=== PATIENT | male | born 1935 | race Caucasian/White ===

== ENCOUNTER 2022-02-14 22:14 | Observation (INO) ==
[2022-02-15] MEDS ORDERED: ACETAMINOPHEN 1,000 MG/100 ML VIAL IV STA (00:30)
[2022-02-15] MEDS ORDERED: SODIUM CHLORIDE 0.9% 1000ML 1,000 ML IV SCH (00:30)
[2022-02-15 01:11] LABS: Basophils # (auto) 0.06 K/uL (0-0.2); Basophils % (auto) 0.8 %; Eosinophils # (auto) 0.33 K/uL (0-0.50); Eosinophils % (auto) 4.2 %; Hematocrit (blood only) 36.8 % (40.1-51.0); Hemoglobin 12.8 g/dl (14.0-18.0); Immature Granulocytes # (auto) 0.02 K/uL (0.00-0.02); Immature Granulocytes % (auto) 0.3 %; Lymphocytes # (auto) 2.04 K/uL (1.2-3.4); Lymphocytes % (auto) 26.1 %; Mean Corpuscular Hemoglobin 33.9 pg (25.0-34.0); Mean Corpuscular Hgb Conc 34.8 g/dL (32.0-36.0); Mean Corpuscular Volume 97.4 fL (80.0-100.0); Mean Platelet Volume 12.6 fL (9.4-12.4); Monocytes % (auto) 16.6 %; Neutrophils # (auto) 4.06 K/uL (1.4-6.5); Platelet Count 158 K/uL (130-400); RDW Coefficient of Variation 14.8 % (11.5-14.5); RDW Standard Deviation 53.2 fL (36.4-46.3); Red Blood Count 3.78 M/uL (4.63-6.08); White Blood Count 7.81 K/ul (4.8-10.8)
[2022-02-15 01:25] LABS: Albumin Globulin Ratio 1.1 (0.9-2); Albumin Level 3.6 gm/dl (3.4-5.0); BUN Creatinine Ratio 25.6 (10-20); Bilirubin,Total 0.4 mg/dl (0.2-1.0); Calcium 9.1 mg/dl (8.5-10.1); Creatinine Clr Calc Pharmacy 53.4 ml/min; Est GFR (African American) 95.4 ml/min; Est GFR (Non-African American) 82.3 ml/min; Globulin 3.2 gm/dl (2.5-4.0); Magnesium 1.8 mg/dl (1.7-2.4); Total Protein 6.8 gm/dl (6.0-8.3)
[2022-02-15 01:42] LABS: Appearance Urine Clear (Clear); Bilirubin Urine Negative (Negative); Blood Urine Negative (Negative); Color Urine Yellow; Glucose Urine UA Negative (Negative); Ketones Urine Negative (Negative); Leukocyte Esterase Urine Negative (Negative); Nitrite Urine Negative (Negative); Protein Urine Negative (Negative); Specific Gravity Urine 1.016 (1.000-1.030); Urobilinogen Urine Negative (Negative)
--- NOTE | 2022-02-15 03:28 | History & Physical Report ---
Date of Service February 15, 2022 Assessment & Plan (1) Hip pain, left: Plan: This is an 86-year-old male with a history of dyslipidemia, coronary artery disease s/p CABGx4 in 1987 and later stenting, hypertension, and prostatic enlargement who presented to [facility] for evaluation of fall onto his left side approx. 4 days ago, subsequently told he had a "hip fracture" on this side at urgent care -- unfortunately files are unavailable from them at this time. CT of the hip STAT-Rad did not reveal acute fractures, though it did point out spots concerning for lytic lesions. LEFT Hip Pain - Patient endured fall in his yard approx. 4 days ago with significant L-lateral hip pain and difficulty bearing weight since. Told he was had a "hip fracture" at urgent care after CT, though files are not available at this time - Exam demonstrating mild-moderate pain over LEFT greater trochanter region with associated contusion ; patient also reports it hurts significantly with weightbaring - CT STAT-Rad hip: No mention of fx, "multiple small rounded blastic bone lesions, suspect metastases, in particular considering the marked enlargement of the prostate gland. Severe atherosclerosis. Colonic diverticulosis." - XRs: Did not appreciate any obvious fractures on read, though appreciate final radiology interpretation - DDX: Fracture, soft tissue injury (e.g., hematoma), GT bursitis - Check MRI - patient does have h/o war injuries and possible shrapnel, spoke with endoscopy tech, will do thorough review and if unclear hold on scanning - Activity will be restricted to bedrest at this time ; non-weightbearing on LEFT - Pain: Tylenol 1000mg q8h LAUREN, Toradol 15mg q6h for breakthrough > Dilaudid for severe - Await final radiology reads and MRI in AM -- if ongoing concerns for fx, anticipate orthopedics consult --> NPO now - PT, OT are ordered (2) Lytic lesion of bone on x-ray: Plan: Suspected Lytic Lesions - Appreciated on CT scan by STAT-RAD in context of significant prostatic enlargement -- However, patient/ tell me this was NOT noted on any other XRs/CTs they had within the last few days at ? No files available -- ALP normal - Primed patient and his with this information and possible relationship to prostate. Will await over-read in AM and MRI. (3) Prostatic disease: Plan: Prostatic Enlargement - History noted, also appreciated on CT of the hip obtained on admission - Patient reporting significant issues with urination and straining -- would likely benefit from urological consultation - Continue Flomax - If above lesions are c/w metastatic disease, may wish to consult urology while here for biopsy (4) CAD (coronary artery disease): Plan: HTN / CAD / HLD - S/P CABG x 4 in 1987 and "a couple stents" approx. 8 years ago at [facility] - Continue home medications - isosorbide, amlodipine, metoprolol, statin - Severe atherosclerotic disease appreciated on CT scan ; may wish to increase statin to high-potency once acute issues are settled - No h/o CHF per patient and his Plan Code: Full Diet: NPO for now PPX: SCDs in case of possible procedure Dispo: [place] History of Present Illness Primary Care Provider: Martina Desai This is an 86-year-old male with a history of dyslipidemia, coronary artery disease s/p CABGx4 in 1987 and later stenting, hypertension, and prostatic enlargement who presented to [facility] for evaluation of fall and pelvic pain. Patient says that approximately 4 to 5 days ago, he was outside at night and he tripped and fell on his left side but also hit his head. No LOC. He immediately felt pain within his left side, but continued to ambulate. Because of increasing pain in his lateral left hip, extending down his leg, he did go to the [place] urgent care. They initially did a CT and an x-ray, which they were told was negative for any fracture. Head CT was also negative. He was given a shot of Toradol with some improvement. Because the pain did not improve, he did return to urgent care, where he was then told he did have a fracturethey cannot exactly remember where. They were then told to come to the emergency room for further evaluation. He denies issues like this before. He denies any numbness or tingling on that leg. He denies any back pain. He does endorse issues with voiding. He does say that he has to strain to void frequently. He is a [place] and endorses prior war wounds with shrapnel. On arrival, patient was found to be hemodynamically stable with normal vital signs. Patient CBC demonstrates normocytic anemia 12.8, relative monocytosis, chemistries with BUN 20/creatinine 0.78, normal ALP, normal urine study. CT of the hip was obtained which demonstrated "multiple small rounded blastic bone lesions, suspect metastases, in particular considering the marked enlargement of the prostate gland. Severe atherosclerosis. Colonic diverticulosis." Patient was given Tylenol and IV fluids. Allergies Allergy/AdvReac Type Severity Reaction Status Date / Time simvastatin [From Zocor] Allergy Unknown Unknown Verified 02/15/22 01:10 Home Medications Medication Instructions Recorded Confirmed Type albuterol sulfate 90 mcg/actuation 2 puff inhalation Q6H PRN 02/15/22 02/15/22 History aerosol inhaler Shortness Of Breath amlodipine 2.5 mg tablet 2.5 mg PO DAILY 02/15/22 02/15/22 History guaifenesin 200 mg tablet 200 mg PO BID 02/15/22 02/15/22 History isosorbide mononitrate 60 mg 30 mg PO BID 02/15/22 02/15/22 History tablet,extended release 24 hr metoprolol tartrate 25 mg tablet 12.5 mg PO BID 02/15/22 02/15/22 History omeprazole 20 mg tablet,delayed 20 mg PO DAILY 02/15/22 02/15/22 History release pravastatin 40 mg tablet 40 mg PO HS 02/15/22 02/15/22 History tamsulosin 0.4 mg capsule 0.4 mg PO HS 02/15/22 02/15/22 History tramadol 50 mg tablet 50 mg PO Q4H PRN hip pain #15 tabs 02/15/22 Rx Past Med/Surg History Medical History (Updated 02/15/22 @ 17:38 by Peg Chase PA-C) CAD (coronary artery disease) Dyslipidemia FH: CABG (coronary artery bypass surgery) Hypertension Prostate enlargement Surgical History (Updated 02/15/22 @ 00:37 by Cathy Morrison MD) S/P coronary artery stent placement Social History Smoking Status: Former smoker Second Hand Exposure: Yes; Hx Alcohol Use: No Hx Substance Use: No Preferred Language: Barbadian Communication Ability: Effective [employer] Portal Developer Required: No Beliefs That Will Affect Care: None marital status: Current Living Situation: Spouse How many Children do You have: 1 Feels Safe at Home: Yes Assistive Devices: None Review of Systems Review of Systems: as per HPI Physical Exam Physical Exam: General: 86-year old male who is alert, oriented, and appears in no acute distress. HEENT: NCAT. - Eyes - Sclera are white, anicteric, and without injection. - Mouth - MMM - Neck - supple, no appreciable JVD Cardiac: Normal rate and regular rhythm; S1 and S2 present with no murmurs, rubs, or gallops. Pulmonary: Good respiratory effort with symmetric expansion of the chest. No use of accessory muscles. Lungs demonstrating rhonchi in the lower lung azul. Abdominal: Normoactive bowel sounds. Abdomen was soft, nondistended. There is a palpable suprapubic firm mass likely consistent with full bladder. MSK: - Hips: Palpation of the hips reveals moderate pain over the left greater trochanter. There is contusion in the viscinity of the L greater trochanter. He can actively flex this side; strength not assessed due to unclear degree of injury. Knee strength was 5/5 bilaterally. Sensation to light-touch was intact through both legs. - Back: Direct observation of the back reveals no abnormalities. There was no point tenderness upon vertebral palpation. There was no paraspinal firmness and/or tenderness appreciated. Extremities: Upper and lower extremities are warm and well perfused. No peripheral edema in the lower extremities bilaterally Psych: Well-developed, well-nourished, appropriately dressed for occasion. Behavior is cooperative and appropriate. Affect is WNL. Insight is appropriate. Results & Data Results & Data ([facility]) Vital Signs (Past 12 Hours) Vital Signs Temp Pulse Pulse Resp BP BP Pulse Ox 02/15/22 02:30 63 20 129/75 97 02/15/22 00:47 97 02/15/22 00:37 59 L 20 141/57 H 98 02/14/22 22:17 37 C 62 16 136/67 96 O2 Del Method 02/15/22 02:30 Room Air 02/15/22 00:47 Room Air 02/15/22 00:37 Room Air 02/14/22 22:17 Room Air Supervising Physician Co-Signing Physician Notes Attending addendum: I have physically seen this patient, have supervised the medical residents activities, and agree with the H&P unless as otherwise noted. Assessment and Plan: Intractable left hip pain/ambulatory dysfunction- X-ray and CT negative for fracture Consult orthopedic surgery for their assessment MRI questionably able to be performed, due to history of war injuries and possible shrapnel Tylenol 1000 mg IV every 8 hours as needed mild pain or temperature Toradol 15 mg IV every 6 hours p.o. breakthrough pain or moderate pain Dilaudid 0.25 mg IV every 3 hours as needed severe pain Blastic lesions noted on x-ray/prostatomegaly- Unknown to patient and Further work-up by daytime team CAD/hypertension/hyperlipidemia/status post CABG x4 in 1987/Stented coronary arteries- Continue routine medications: Isosorbide mononitrate, amlodipine, metoprolol and pravastatin Remaining orders and notations as noted Resident Activity Tracking Resident Involvement: Resident Care Provided Care Provided: Adult [facility]
[2022-02-15] MEDS ORDERED: ACETAMINOPHEN 325 MG TAB PO PRN (03:41)
[2022-02-15] MEDS ORDERED: ALBUTEROL HFA 8 GM INHALER INH PRN (05:21)
--- NOTE | 2022-02-15 05:53 | Emergency Department Note ---
Impression & Plan Fracture of left iliac wing, Right distal ureteral calculus, Prostate enlargement ED Provider Note CHIEF COMPLAINT: L hip pain HISTORY OF PRESENT ILLNESS: This 86 yo male patient presents to the emergency department with c/o L hip pain after a fall 4 days ago. Patient states he tripped over his dog, did hit his head and now complains of left hip pain. His took him to urgent care the morning after the fall but they recommended transfer to [place] for definitive care. Patient re-presented to the urgent care at the CT and the patient had repeat x-rays and a CAT scan. He was told that this represented a fracture and that he would need to be transferred to the [facility] of the CT. Patient and declined, stating they would like to come to our facility for evaluation. REVIEW OF SYSTEMS: A review of systems was performed with positives and pertinent negatives listed in the history of present illness. 10 systems were reviewed and are otherwise negative. ALLERGIES: see below MEDICATIONS: see below PMH: see below SOCIAL HISTORY: see below DDx: Fracture, subluxation, dislocation, contusion, ligamentous injury, neurovascular, compartment syndrome, rhabdomyolysis, as well as other pathologies. PHYSICAL EXAM: Vital signs reviewed. General: Well-appearing 86 yo male, in no significant distress. HEENT: No scleral icterus, PERRLA, neck supple. Atraumatic. Cardiovascular: Regular rate and rhythm, no extra sounds. Pulmonary: Clear to auscultation bilaterally, normal work of breathing. Abdomen: Soft, nontender, nondistended, positive bowel sounds. Musculoskeletal: Atraumatic, no peripheral edema. Nontender to palpation lumbar spine. Over the left anterior pelvis. No obvious deformity over the L hip, full range of motion. Neurologic: Patient awake alert and oriented x 3 Skin: Warm, dry, no rash EMERGENCY DEPARTMENT COURSE/MDM: This patient was evaluated and appeared to be in no significant distress. Patient was uncomfortable to direct pressure over the pelvis and hip. He did have some discomfort with walking. Patient was medicated with IV Tylenol. X-rays were performed and no acute fractures were visualized to my interpretation. CT imaging was performed and reveals some sclerotic lesions throughout the pelvis and a fracture of the iliac bone. Patient's case was discussed with the hospitalist service who will evaluate pa tient for admission and further management. Patient and are aware of the plan and agreed. MONITORING: An order for cardiac monitoring was placed and the patient is noted to be in a sinus bradycardia at 63 beats per minute. RADIOLOGY: See below EKG: Sinus bradycardia premature atrial complex at 58 bpm. QTC is 418. Normal ST segments, otherwise normal EKG. No previous for comparison. 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 Beliefs That Will Affect Care: None marital status: Current Living Situation: Spouse How many Children do You have: 1 Feels Safe at Home: Yes Assistive Devices: None Allergies Allergies Allergy/AdvReac Type Severity Reaction Status Date / Time simvastatin [From Zocor] Allergy Unknown Unknown Verified 02/15/22 01:10 Home Meds Home Medications Medication Instructions Recorded Confirmed albuterol sulfate 90 mcg/actuation 2 puff inhalation Q6H PRN 02/15/22 02/15/22 aerosol inhaler Shortness Of Breath amlodipine 2.5 mg tablet 2.5 mg PO DAILY 02/15/22 02/15/22 guaifenesin 200 mg tablet 200 mg PO BID 02/15/22 02/15/22 isosorbide mononitrate 60 mg 30 mg PO BID 02/15/22 02/15/22 tablet,extended release 24 hr metoprolol tartrate 25 mg tablet 12.5 mg PO BID 02/15/22 02/15/22 omeprazole 20 mg tablet,delayed 20 mg PO DAILY 02/15/22 02/15/22 release pravastatin 40 mg tablet 40 mg PO HS 02/15/22 02/15/22 tamsulosin 0.4 mg capsule 0.4 mg PO HS 02/15/22 02/15/22 Previous Rx's Medication Instructions Recorded tramadol 50 mg tablet 50 mg PO Q4H PRN hip pain #15 tabs 02/15/22 Results & Data (ED) Vital Signs Vital Signs - 24 hr 02/14/22 22:17 02/15/22 00:37 02/15/22 00:47 Temperature 37 C Temperature Source Temporal Artery Scan Pulse Rate 62 Pulse Rate [Finger] 59 L Respiratory Rate 16 20 Respiratory Effort / Characteristics Non-Labored Spontaneous Respiratory Depth Normal Blood Pressure 136/67 Blood Pressure [Right Arm] 141/57 H Blood Pressure Mean 90 Blood Pressure Mean [Right Arm] 85 Pulse Oximetry 96 98 97 Oxygen Delivery Method Room Air Room Air Room Air Sepsis Recent Fever Within 48 Hours No Sepsis New/Unexplained Change in Mental Status N/A Sepsis Action Taken by Nursing No Action Required 02/15/22 02:30 Temperature Temperature Source Pulse Rate Pulse Rate [Finger] 63 Respiratory Rate 20 Respiratory Effort / Characteristics Respiratory Depth Blood Pressure Blood Pressure [Right Arm] 129/75 Blood Pressure Mean Blood Pressure Mean [Right Arm] 93 Pulse Oximetry 97 Oxygen Delivery Method Room Air Sepsis Recent Fever Within 48 Hours Sepsis New/Unexplained Change in Mental Status Sepsis Action Taken by [facility] Medications Current Medication List: was personally reviewed by me Laboratory Data Attestation: I reviewed the patient's lab results. Result diagrams: 02/15/22 00:47 02/15/22 00:47 Lab Results 02/15/22 02/15/22 02/15/22 Range/Units 00:47 00:47 00:47 WBC 7.81 (4.8-10.8) K/ul RBC 3.78 L (4.63-6.08) M/uL Hgb 12.8 L (14.0-18.0) g/dl Hct 36.8 L (40.1-51.0) % MCV 97.4 (80.0-100.0) fL MCH 33.9 (25.0-34.0) pg MCHC 34.8 (32.0-36.0) g/dL RDW Std Deviation 53.2 H (36.4-46.3) fL RDW Coeff of Livan 14.8 H (11.5-14.5) % Plt Count 158 (130-400) K/uL MPV 12.6 H (9.4-12.4) fL Immature Gran % (Auto) 0.3 % Neut % (Auto) 52.0 % Lymph % (Auto) 26.1 % Carter % (Auto) 16.6 % Eos % (Auto) 4.2 % Baso % (Auto) 0.8 % Neut # (Auto) 4.06 (1.4-6.5) K/uL Lymph # (Auto) 2.04 (1.2-3.4) K/uL Carter # (Auto) 1.30 H (0.24-0.82) K/uL Eos # (Auto) 0.33 (0-0.50) K/uL Baso # (Auto) 0.06 (0-0.2) K/uL Immature Gran # (Auto) 0.02 (0.00-0.02) K/uL Sodium 138 (136-145) mmol/L Potassium 5.0 (3.5-5.1) mmol/L Chloride 103 (98-107) mmol/L Carbon Dioxide 31 (21-32) mmol/L Anion Gap 4 (3-11) BUN 20 (6-23) mg/dl Creatinine 0.78 (0.6-1.4) mg/dl Est Cr Clr Drug Dosing 53.4 ml/min Est GFR ( Amer) 95.4 ml/min Est GFR (Non-Af Amer) 82.3 ml/min BUN/Creatinine Ratio 25.6 H (10-20) Glucose 101 H (70-99(Fasting)) mg/dl Calcium 9.1 (8.5-10.1) mg/dl Magnesium 1.8 (1.7-2.4) mg/dl Total Bilirubin 0.4 (0.2-1.0) mg/dl AST 20 (13-39) U/L ALT 9 (7-52) U/L Alkaline Phosphatase 74 (34-104) U/L Total Protein 6.8 (6.0-8.3) gm/dl Albumin 3.6 (3.4-5.0) gm/dl Globulin 3.2 (2.5-4.0) gm/dl Albumin/Globulin Ratio 1.1 (0.9-2) TSH 3.043 (0.300-4.500) uIu/ml Urine Color Urine Appearance (Clear) Urine pH (4.5-7.5) Ur Specific [place] (1.000-1.030) Urine Protein (Negative) Urine Glucose (UA) (Negative) Urine Ketones (Negative) Urine Blood (Negative) Urine Nitrite (Negative) Urine Bilirubin (Negative) Urine Urobilinogen (Negative) Ur Leukocyte Esterase (Negative) SARS-CoV-2, RNA, NAAT (NEGATIVE) 02/15/22 02/15/22 Range/Units 01:31 03:32 WBC (4.8-10.8) K/ul RBC (4.63-6.08) M/uL Hgb (14.0-18.0) g/dl Hct (40.1-51.0) % MCV (80.0-100.0) fL MCH (25.0-34.0) pg MCHC (32.0-36.0) g/dL RDW Std Deviation (36.4-46.3) fL RDW Coeff of Livan (11.5-14.5) % Plt Count (130-400) K/uL MPV (9.4-12.4) fL Immature Gran % (Auto) % Neut % (Auto) % Lymph % (Auto) % Carter % (Auto) % Eos % (Auto) % Baso % (Auto) % Neut # (Auto) (1.4-6.5) K/uL Lymph # (Auto) (1.2-3.4) K/uL Carter # (Auto) (0.24-0.82) K/uL Eos # (Auto) (0-0.50) K/uL Baso # (Auto) (0-0.2) K/uL Immature Gran # (Auto) (0.00-0.02) K/uL Sodium (136-145) mmol/L Potassium (3.5-5.1) mmol/L Chloride (98-107) mmol/L Carbon Dioxide (21-32) mmol/L Anion Gap (3-11) BUN (6-23) mg/dl Creatinine (0.6-1.4) mg/dl Est Cr Clr Drug Dosing ml/min Est GFR ( Amer) ml/min Est GFR (Non-Af Amer) ml/min BUN/Creatinine Ratio (10-20) Glucose (70-99(Fasting)) mg/dl Calcium (8.5-10.1) mg/dl Magnesium (1.7-2.4) mg/dl Total Bilirubin (0.2-1.0) mg/dl AST (13-39) U/L ALT (7-52) U/L Alkaline Phosphatase (34-104) U/L Total Protein (6.0-8.3) gm/dl Albumin (3.4-5.0) gm/dl Globulin (2.5-4.0) gm/dl Albumin/Globulin Ratio (0.9-2) TSH (0.300-4.500) uIu/ml Urine Color Yellow Urine Appearance Clear (Clear) Urine pH 7.0 (4.5-7.5) Ur Specific [place] 1.016 (1.000-1.030) Urine Protein Negative (Negative) Urine Glucose (UA) Negative (Negative) Urine Ketones Negative (Negative) Urine Blood Negative (Negative) Urine Nitrite Negative (Negative) Urine Bilirubin Negative (Negative) Urine Urobilinogen Negative (Negative) Ur Leukocyte Esterase Negative (Negative) SARS-CoV-2, RNA, NAAT NEGATIVE (NEGATIVE) Administered Medications Discontinued Medications Acetaminophen (Acetaminophen 325 Mg Tab) 650 mg PO Q4H PRN PRN Reason: pain/fever Stop: 03/17/22 03:40 Last Admin: 02/15/22 06:43 Dose: 650 mg Documented By: MORIS Amlodipine Besylate (Amlodipine Besylate 5 Mg Tab) 2.5 mg PO DAILY [facility] Stop: 03/17/22 08:59 Last Admin: 02/15/22 08:22 Dose: 2.5 mg Documented By: ABEL Guaifenesin (Guaifenesin 200 Mg Tab) 200 mg PO BID [facility] Stop: 03/17/22 08:59 Last Admin: 02/15/22 08:21 Dose: 200 mg Documented By: ABEL Hydromorphone HCl (Hydromorphone Inj 0.5 Mg/0.5 Ml Syr) 0.25 mg IV Q6H PRN PRN Reason: Pain beyond Toradol or Severe Stop: 03/01/22 05:56 Last Admin: 02/15/22 09:06 Dose: 0.25 mg Documented By: ABEL Sodium Chloride (Nss 1000ml) 1,000 mls @ 125 mls/hr IV .Q8H [facility] Stop: 02/15/22 08:29 Last Infusion: 02/15/22 07:21 Dose: 0 mls/hr Documented By: Admin: 02/15/22 00:47 Dose: 125 mls/hr Documented By: BILL Acetaminophen (Ofirmev) 1,000 mg in 100 mls @ 400 mls/hr IV NOW STA Stop: 02/15/22 00:44 Last Infusion: 02/15/22 01:23 Dose: 0 mls/hr Documented By: Admin: 02/15/22 00:47 Dose: 400 mls/hr Documented By: BILL Acetaminophen 1,000 mg/ EMPTY (BAG) 100 mls @ 400 mls/hr IV Q8H [facility]UREN Stop: 03/17/22 05:59 Last Infusion: 02/15/22 13:29 Dose: 0 mls/hr Documented By: Admin: 02/15/22 13:13 Dose: 400 mls/hr Documented By: Admin: 02/15/22 07:11 Dose: Not Given Documented By: ABEL Isosorbide Mononitrate (Isosorbide Carter Extended Rel 30 Mg Tabcr) 30 mg PO BID [facility]EN Stop: 03/17/22 08:59 Last Admin: 02/15/22 08:22 Dose: 30 mg Documented By: ABEL Metoprolol Tartrate (Metoprolol Tartrate 25 Mg Tab) 12.5 mg PO BID [facility] Stop: 03/17/22 08:59 Last Admin: 02/15/22 08:22 Dose: 12.5 mg Documented By: ABEL Pantoprazole Sodium (Pantoprazole 40 Mg Tab) 40 mg PO DAILY [facility] Stop: 03/17/22 08:59 Last Admin: 02/15/22 08:22 Dose: 40 mg Documented By: ABEL Imaging Data Radiologist's Impression: Chest X-Ray 02/15/22 00:29 XR chest 1V portable CLINICAL HISTORY: weakness TECHNIQUE: Single frontal radiograph of the chest was obtained. Comparison: None available at the time of this dictation. FINDINGS: Median sternotomy wires are seen with fractured superior wire. Cardiomegaly is noted. The aortic arch is calcified. Prominence and cephalization of the vasculature is seen. No evidence of pleural effusion or pneumothorax. IMPRESSION: Cardiomegaly with mild pulmonary edema. ACT 112: Negative or not required by law. Electronically signed by: Syed Tinoco M.D. 02/15/2022 9:43 AM Hip/Pelvis X-Ray 02/15/22 00:30 XR hip LT 2V w pelvis CLINICAL HISTORY: Fracture TECHNIQUE: 2 views of the left hip and single frontal view of the pelvis were obtained. Comparison: Comparison is made to CT pelvis 02/15/2022 FINDINGS: There is a linear lucency in the left iliac bone compatible with a minimally displaced fracture. No fracture of the hip or other pelvic bones are seen. Degenerative changes are seen in the hip joint. Postsurgical changes of hernia mesh noted. IMPRESSION: Fracture of the left iliac bone. No fractures of the hip or remainder of the pelvis noted. ACT 112: Negative or not required by law. Electronically signed by: Syed Tinoco M.D. 02/15/2022 9:[address] 02/15/22 01:[address] DOSE: 278.39 mGy.cm HISTORY: L hip pain, ? fracture per outside report TECHNIQUE: Multiaxial CT images of the pelvis were performed and reformatted in the sagittal and coronal plane without the use of contrast. A dose lowering technique was utilized adhering to the principles of ALARA. COMPARISON: Left femur 02/15/2022. FINDINGS: Slightly angulated fracture within the anterior aspect of the left iliac wing best seen on image 349. This demonstrates mild lateral angulation. Soft tissue edema within the anterior aspect of the left hemipelvis with a small intramuscular hematoma within the adjacent left iliacus muscle. Prostate gland is markedly enlarged. Mild bladder wall thickening is likely due to chronic outlet obstruction. The bladder is mildly distended. There is a 1.1 cm stone within the distal right ureter near the ureterovesical junction best seen image 315 resulting in mild dilatation of the distal right ureter. Evidence for prior right inguinal hernia repair. Prominent bilateral iliac lymph nodes with the largest on the right on image 135 measuring 10 mm and the largest on the left within the left pelvic sidewall on image 395 measuring 13 mm. Multiple scattered subcentimeter sclerotic foci seen within the pelvic bones measuring up to 5 mm. No fracture or dislocation within the proximal right or left femur. IMPRESSION: 1. Slightly angulated oblique fracture within the anterior left iliac bone. 2. No fracture or dislocation within the right or left femur. 3. A 1.1 cm obstructing stone within the distal right ureter. 4. Markedly enlarged prostate gland with multiple mildly enlarged pelvic lymph nodes. Metastatic disease would be the diagnosis of exclusion. 5. Scattered subcentimeter sclerotic foci within the pelvic bones. These are nonspecific could represent bone islands or metastatic disease. 6. This report was called/faxed to the emergency department following dictation. ACT 112: Negative or not required by law. Electronically signed by: Gelacio Kaur M.D. 02/15/2022 8:04 AM Femur X-Ray 02/15/22 01:15 XR femur LT 2V routine CLINICAL HISTORY: trauma TECHNIQUE: 2 radiographic views of the left femur were obtained. Comparison: Comparison is made to left hip radiograph 02/15/2022 FINDINGS: There is no evidence for fracture, subluxation or dislocation. Degenerative changes are seen in the hip and knee joints. Surgical clips are seen in the posterior distal soft tissues. Vascular calcifications are seen. IMPRESSION: No evidence of acute bony injury. ACT 112: Negative or not required by law. Electronically signed by: Syed Tinoco M.D. 02/15/2022 9:43 AM Blood Pressure Blood Pressure Findings: Normal blood pressure Blood Pressure Disposition: did not require urgent referral Discharge Plan Visit Data Chief Complaint: Fall Stated Complaint: FELL02/11,PELVIC PAIN, PELVIC FRACTURE ED Provider: Cathy Morrison Discharge Problem: Fracture of left iliac wing, Right distal ureteral calculus, Prostate enlargement Patient Disposition: Admitted As Inpatient Discharge Instructions Interventions: ED Discharge Assessment Last Done: 02/15/22 04:59
[2022-02-15] MEDS ORDERED: HYDROmorphone INJ 0.5 MG/0.5 ML SYR IV PRN (05:57)
[2022-02-15] MEDS ORDERED: KETOROLAC TROMETHAMINE 15 MG/ML VIAL IV PRN (05:57)
[2022-02-15] MEDS: ACETAMINOPHEN 1,000 MG in EMPTY BAG 0 ML IV SCH ×2 (07:11→13:13)
--- NOTE | 2022-02-15 08:06 | CT Scan Report ---
PELVIS CT CT DOSE: 278.39 mGy.cm HISTORY: L hip pain, ? fracture per outside report TECHNIQUE: Multiaxial CT images of the pelvis were performed and reformatted in the sagittal and josh nal plane without the use of contrast. A dose lowering technique was utilized adhering to the princi ples of WILLIAM. COMPARISON: Left femur 02/15/2022. FINDINGS: Slightly angulated fracture within the anterior aspect of the left iliac wing best seen on image 349. This demonstrates mild lateral angulation. Soft tissue edema within the anterior aspect of the left hemipelvis with a small intramuscular hematoma within the adjacent left iliacus muscle. Pro state gland is markedly enlarged. Mild bladder wall thickening is likely due to chronic outlet obstru ction. The bladder is mildly distended. There is a 1.1 cm stone within the distal right ureter near t he ureterovesical junction best seen image 315 resulting in mild dilatation of the distal right urete r. Evidence for prior right inguinal hernia repair. Prominent bilateral iliac lymph nodes with the la rgest on the right on image 135 measuring 10 mm and the largest on the left within the left pelvic si dewall on image 395 measuring 13 mm. Multiple scattered subcentimeter sclerotic foci seen within the pelvic bones measuring up to 5 mm. No fracture or dislocation within the proximal right or left femur . IMPRESSION: 1. Slightly angulated oblique fracture within the anterior left iliac bone. 2. No fracture or dislocation within the right or left femur. 3. A 1.1 cm obstructing stone within the distal right ureter. 4. Markedly enlarged prostate gland with multiple mildly enlarged pelvic lymph nodes. Metastatic dise ase would be the diagnosis of exclusion. 5. Scattered subcentimeter sclerotic foci within the pelvic bones. These are nonspecific could repres ent bone islands or metastatic disease. 6. This report was called/faxed to the emergency department following dictation. ACT 112: Negative or not required by law. Electronically signed by: Gelacio Kaur M.D. 02/15/2022 8:04 AM
[2022-02-15] MEDS ORDERED: ISOSORBIDE MONO EXTENDED REL 30 MG TABCR PO SCH (09:00)
[2022-02-15] MEDS ORDERED: METOPROLOL TARTRATE 25 MG TAB PO SCH (09:00)
[2022-02-15] MEDS ORDERED: ENOXAPARIN INJ 40 MG/0.4 ML SYR SQ SCH (09:00)
[2022-02-15] MEDS ORDERED: amLODIPine BESYLATE 5 MG TAB PO SCH (09:00)
[2022-02-15] MEDS ORDERED: guaiFENesin 200 MG TAB PO SCH (09:00)
[2022-02-15] MEDS ORDERED: PANTOprazole 40 MG TAB PO SCH (09:00)
--- NOTE | 2022-02-15 09:38 | XRay Report ---
XR hip LT 2V w pelvis CLINICAL HISTORY: Fracture TECHNIQUE: 2 views of the left hip and single frontal view of the pelvis were obtained. Comparison: Comparison is made to CT pelvis 02/15/2022 FINDINGS: There is a linear lucency in the left iliac bone compatible with a minimally displaced fracture. No f racture of the hip or other pelvic bones are seen. Degenerative changes are seen in the hip joint. Po stsurgical changes of hernia mesh noted. IMPRESSION: Fracture of the left iliac bone. No fractures of the hip or remainder of the pelvis noted. ACT 112: Negative or not required by law. Electronically signed by: Syed Tinoco M.D. 02/15/2022 9:36 AM
--- NOTE | 2022-02-15 09:44 | XRay Report ---
XR chest 1V portable CLINICAL HISTORY: weakness TECHNIQUE: Single frontal radiograph of the chest was obtained. Comparison: None available at the time of this dictation. FINDINGS: Median sternotomy wires are seen with fractured superior wire. Cardiomegaly is noted. The aortic arch is calcified. Prominence and cephalization of the vasculature is seen. No evidence of pleural effusi on or pneumothorax. IMPRESSION: Cardiomegaly with mild pulmonary edema. ACT 112: Negative or not required by law. Electronically signed by: Syed Tinoco M.D. 02/15/2022 9:43 AM
--- NOTE | 2022-02-15 09:45 | XRay Report ---
XR femur LT 2V routine CLINICAL HISTORY: trauma TECHNIQUE: 2 radiographic views of the left femur were obtained. Comparison: Comparison is made to left hip radiograph 02/15/2022 FINDINGS: There is no evidence for fracture, subluxation or dislocation. Degenerative changes are seen in the h ip and knee joints. Surgical clips are seen in the posterior distal soft tissues. Vascular calcificat ions are seen. IMPRESSION: No evidence of acute bony injury. ACT 112: Negative or not required by law. Electronically signed by: Syed Tinoco M.D. 02/15/2022 9:43 AM
--- NOTE | 2022-02-15 13:20 | Magnetic Resonance Report ---
MRI OF LEFT HIP WITHOUT IV CONTRAST CLINICAL HISTORY: Fall. Left iliac wing fracture. COMPARISON STUDY: CT of the bony pelvis dated 02/15/2022. Radiographs of the left hip and bony pelvis dated 02/15/2022. TECHNIQUE: MRI of the left hip is performed utilizing various T1 and T2-weighted sequences in the axi al, sagittal, and coronal planes. IV contrast was not administered for this examination. The examinat ion is compromised by motion artifact. FINDINGS: There is marrow edema in the left iliac wing with evidence of a minimally displaced fractur e. This is only seen on the coronal sequences and was better evaluated on today's pelvic CT. There is no marrow abnormality/edema in the left proximal femur to indicate fracture. The remainder of the vi sualized bony pelvis appears intact. There is no evidence of avascular necrosis of the femoral heads. No hip joint effusion is seen. There is soft tissue edema seen around the left proximal femur, great est anteriorly. The rectus femoris and the iliopsoas tendons appear intact. There is edema and presum ed intramuscular hemorrhage within the left iliacus muscle. There is mild edema within the left glute al musculature. The regional musculature is atrophic. The prostate gland is markedly enlarged and het erogeneous. The bladder wall is thickened and trabeculated indicating chronic outlet obstruction. A l arge calculus is seen within the distal right ureter. IMPRESSION: 1. A fracture of the left iliac wing is partially visualized. 2. There is no evidence of left femoral fracture. 3. Intramuscular and soft tissue edema is present around the left iliac wing fracture and the left pr oximal femur. 4. Marked prostatomegaly and large distal right ureteral stone. Dictated: 02/15/2022 11:45 AM Transcribed: 02/15/2022 12:41 PM Stephanie [id number] [email or web address] Electronically signed by: Nash Villafana M.D. 02/15/2022 1:18 PM
--- NOTE | 2022-02-15 14:13 | History & Physical Bridge Note ---
Date of Service February 15, 2022 History & Physical Bridge Note I have examined the patient, reviewed the History & Physical and in the interval since the performance of the History & Physical I have noted the following changes of clinical significance: Patient underwent MRI which demonstrated a L iliac wing fx. Will consult orthopedics for WB recommendations. PT/OT eval - if allowed WBAT can return home with home health. However, there is some concern for lytic lesions on imaging that may represent metastatic disease. Given this coupled with prostatomegaly + a large distal R obstructing stone, will consult urology for additional recommendations and possible prostate biopsy. Not entirely sure if this fx represents a pathologic fx due to bone mets versus from mechanical fall that occurred at home. Appreciate assistance. Pain control. D/C planning. Plan reviewed with Dr. Esparza.
--- NOTE | 2022-02-15 16:09 | Urology Consultation ---
Date of Consultation February 15, 2022 Assessment & Plan (1) Lytic lesion of bone on x-ray: (2) Prostate enlargement: (3) Pelvic lymphadenopathy: (4) Right distal ureteral calculus: Plan 86-year-old gentleman admitted with left hip pain and a CT scan of the pelvis showing a large right distal ureteral calculus and an incredibly enlarged prostate with pelvic lymphadenopathy concerning for metastatic prostate cancer. I had a long discussion with him and his regarding the findings of both the kidney stone and the concern for prostate cancer Regarding his large distal ureteral calculus, he is asymptomatic, kidney function is within normal limits and no concern for infection. I recommended no acute treatment this hospitalization. I explained that we typically treat stones in a retrograde fashion, however given his significantly enlarged prostate and concern for cancer, I think it would be very difficult to get a scope into his bladder and even visualize his right ureteral orifice in order to get access. I explained I think treatment in the future will likely require nephrostomy tube and subsequent antegrade treatment of the stone. Regarding his enlarged prostate and pelvic lymphadenopathy and possible lytic bone lesions, I explained that this strongly suggests he has prostate cancer. I recommended that once he is discharged from the hospital, we see him in clinic and perform a prostate needle biopsy. He and his would like to think about this. I did discuss that if he does have prostate cancer, it is likely metastatic and not curable but that we have numerous treatment options. Recommend obtaining PSA while in the inpatient Urology to follow peripherally. We will schedule appropriate outpatient follow-up depending on patient's clinical course History of Present Illness Reason for Consultation: Right distal ureteral calculus and enlarged prostate with pelvic lymphadenopathy concerning for prostate cancer Attending Physician: Vernon Esparza History of Present Illness 86-year-old male who was admitted overnight due to left hip pain. A CT scan of the pelvis was performed which I independently reviewed. This shows a large right distal ureteral calculus with upstream hydronephrosis and a significantly enlarged prostate with pelvic lymphadenopathy that is concerning for prostate cancer. Labs showed a white blood cell count of 7.8, hemoglobin of 12.8, a creatinine of 0.78, and a UA that was negative. Patient denies any right flank pain. He does have a history of BPH and is on tamsulosin and does report some lower urinary tract symptoms. He and his think he may have had elevated PSAs in the past however they have not been checked recently and he has never had a prostate needle biopsy. He has had multiple hernia repairs. He does have a previous history of smoking. He denies any family history of prostate cancer. Allergies Allergy/AdvReac Type Severity Reaction Status Date / Time simvastatin [From Zocor] Allergy Unknown Unknown Verified 02/15/22 01:10 Home Medications Medication Instructions Recorded Confirmed Type albuterol sulfate 90 mcg/actuation 2 puff inhalation Q6H PRN 02/15/22 02/15/22 History aerosol inhaler Shortness Of Breath amlodipine 2.5 mg tablet 2.5 mg PO DAILY 02/15/22 02/15/22 History guaifenesin 200 mg tablet 200 mg PO BID 02/15/22 02/15/22 History isosorbide mononitrate 60 mg 30 mg PO BID 02/15/22 02/15/22 History tablet,extended release 24 hr metoprolol tartrate 25 mg tablet 12.5 mg PO BID 02/15/22 02/15/22 History omeprazole 20 mg tablet,delayed 20 mg PO DAILY 02/15/22 02/15/22 History release pravastatin 40 mg tablet 40 mg PO HS 02/15/22 02/15/22 History tamsulosin 0.4 mg capsule 0.4 mg PO HS 02/15/22 02/15/22 History Patient History Medical History (Updated 02/15/22 @ 16:06 by Reese Motley MD) CAD (coronary artery disease) Dyslipidemia FH: CABG (coronary artery bypass surgery) Hypertension Prostate enlargement Surgical History (Updated 02/15/22 @ 00:37 by Cathy Morrison MD) S/P coronary artery stent placement Social History Smoking Status: Former smoker Second Hand Exposure: Yes; Do You Dip or Chew Tobacco: No; Hx Alcohol Use: No Hx Substance Use: No Preferred Language: Serbian Communication Ability: Effective Credit Reporting Clerk Required: No Beliefs That Will Affect Care: None marital status: Current Living Situation: Spouse How many Children do You have: 1 Other Information That Helps Us Care for You: No Feels Safe at Home: Yes Safety Concerns: Feels Safe At This Time Assistive Devices: None Review of Systems Review of Systems: 14 point review of systems negative outside of what is listed above in HPI Physical Exam Physical Exam: General: Alert and oriented, no acute distress HEENT: Normocephalic, mucous membranes moist Pulmonary: Nonlabored respirations Abdomen: Nondistended, large midline exploratory laparotomy scar Extremities: Moves all 4 spontaneously Neuro: No gross deficits Skin: Warm, dry, no rashes noted Results & Data ([facility]) Vital Signs (Past 12 Hours) Vital Signs Temp Pulse Resp BP Pulse Ox O2 Del Method 02/15/22 08:38 36.7 C 59 L 18 133/64 95 Room Air 02/15/22 06:00 36.6 C 56 L 18 121/61 97 Room Air 02/15/22 06:50 Room Air PG Care Time/CCT Total # of Minutes Spent Total Time Spent with Patient: Total time spent is greater than 50% in coordination of care (as documented) at patient's floor/unit and/or counseling patient: Coding Level of Care Code 77642 Initial Inpt Care Lvl 3 Diagnoses Lytic lesion of bone on x-ray M89.9 Prostate enlargement N40.0 Pelvic lymphadenopathy R59.0 Right distal ureteral calculus N20.1
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
[2022-02-15] MEDS ORDERED: PRAVASTATIN SOD 40 MG TAB PO SCH (21:00)
[2022-02-15] MEDS ORDERED: TAMSULOSIN HCL 0.4 MG CAP PO SCH (21:00)
--- NOTE | 2022-02-15 21:21 | Electrocardiogram Report ---
Test Reason : Blood Pressure : / mmHG Vent. Rate : 058 BPM Atrial Rate : 058 BPM P-R Int : 136 ms QRS Dur : 112 ms QT Int : 426 ms P-R-T Axes : -12 003 030 degrees QTc Int : 418 ms Sinus bradycardia with Premature atrial complexes Otherwise normal ECG No previous ECGs available Confirmed by Alexandru Garcia ([id number]) on 02/15/2022 9:20:57 PM Referred By: Martina Desai Confirmed By:Alexandru Garcia
--- NOTE | 2022-02-15 23:21 | Billing Data ---
Date of Service February 15, 2022 Coding Level of Care Code INT OBSERVATION CARE 70M LVL 3
== END 2022-02-15 18:11 | disposition home or self-care (01) ==
LOC: ED 22:14 → 3W 22:14 → SUATTDRO 02-15 03:41 → 3W 02-15 04:59